=== PATIENT | male | born 1995 | race Caucasian/White ===

== ENCOUNTER 2021-02-04 12:39 | Emergency (ER) | payer OTHER ==
[~2021-02-04] VITALS: Ht 163.8 cm; Wt 60.8 kg
[2021-02-04 13:23] VITALS: BP 103/80
[2021-02-04] MEDS ORDERED: KETOROLAC 30 MG/ML VIAL IM ONE (14:00)
[2021-02-04] MEDS ORDERED: methocarbamoL 500 MG TAB PO SCH (14:00)
[2021-02-04] MEDS ORDERED: LID5T TP (15:04)
[2021-02-04] MEDS ORDERED: ACET-8386 PO (15:04)
[2021-02-04] MEDS ORDERED: KETOROLAC 30 MG/ML VIAL ONE (15:21)
[2021-02-04] MEDS ORDERED: CRUSHER, PILL MC ONE (15:24)
[2021-02-04 15:33] VITALS: BP 103/80
== END 2021-02-04 15:33 | disposition home or self-care (01) ==
LOC: MED 12:39
DX: S80.02XA Contusion of left knee, initial encounter (principal); S80.01XA Contusion of right knee, initial encounter; R07.89 Other chest pain; Z79.899 Other long term (current) drug therapy; Z79.891 Long term (current) use of opiate analgesic; V89.2XXA Person injured in unspecified motor-vehicle accident, traffic, initial encounter; Y93.89 Activity, other specified; Y92.410 Unspecified street and highway as the place of occurrence of the external cause; Y99.8 Other external cause status
CPT/HCPCS: 71111; 73562; 96372; 99284; J1885